=== PATIENT | male | born 1950 ===

== ENCOUNTER → 2020-09-20 | Outpatient (CLI) | payer OTHER ==
[~2020-09-20] VITALS: Ht 175.3 cm; Wt 59.0 kg
[~2020-09-20] MED LIST: ADVIL200 M1 PO; GAS RELIEF80 MG PO; PERCOCET 10-321 EAC1 PO; PERCOCET 5-3251 EACH PO; TRAZODONE HCL100 MG PO; TYLENOL EXTRA500 MG PO
--- NOTE | ~2020-09-20 | HPC ---
[facility] [place] [address] PAIN MANAGEMENT CONSULTATION Name: SAHZIA KIMBALL JR Room #: REG CARMELO Olea#: [id number] Admission: 09/20/20 Attend Phys: Adnrea Heath DO Discharge: Date of : 52 Report #: [id number] THIS REPORT FOR: cc: Johana Yusuf MD, Stephanie M. MD Johnson, James E. DO ~ DATE OF SERVICE: 09/20/2020 REFERRING PHYSICIAN: Dr. Johana Yusuf. CHIEF COMPLAINT: Chronic abdominal pain. HISTORY OF PRESENT ILLNESS: As you know, the patient is a very unfortunate 70-year-old male who reports longstanding abdominal pain. He has been diagnosed with chronic pancreatitis secondary to chronic liver disease due to polysubstance abuse and alcohol destruction. The patient reports pain intensified somewhere around in 05/2019. He has been evaluated and treated through the [facility] system in regards to his chronic symptoms. It has been determined that there are no further options for treatment through [facility] system. There are notes of noncompliance within the provided medical records. It was determined that no further treatment options were to be pursued that his symptoms had "stabilized". He was then subsequently discharged from their services. He then returned to his primary care physician who has continued the patient on Percocet 10/325, 3 times a day. Apparently, the patient is requesting increase in medication therapy and the patient was referred to our clinic for a second opinion. The patient reports today his pain is periodic. He describes the pain as throbbing, sharp and stabbing. He places current pain score at 8/10, daily average at 8/10, worst pain has been is 10/10. The patient is unable to determine what might exacerbate symptoms. He states his pain is only improved with oxycodone. He has been referred to our service to discuss his chronic abdominal pain and whether or not other options can be suggested. PAST MEDICAL HISTORY: 1. Alcoholic induced hepatitis. 2. Cirrhosis of the liver. 3. Chronic pancreatitis. 4. Gastroesophageal reflux disease. 5. Chronic obstructive pulmonary disease. 6. Chronic hepatitis C. 7. Peripheral arterial disease. 8. Herpes. PAST SURGICAL HISTORY: None. [address] [address] PAIN MANAGEMENT CONSULTATION Name: SHAZIA KIMBALL Room #: REG CARMELO Olea#: [id number] Admission: 09/20/20 Attend Phys: Andrea Heath DO Discharge: Date of : 52 Report #: [id number] SOCIAL HISTORY: The patient continues to smoke despite all recommendations to discontinue the activity as it has a direct effect on his symptoms and disease processes. He is smoking half pack currently, but has been much higher in the past. He has done this for greater than 50 years. He denies alcohol, but continues to par take in marijuana on a consistent basis. He is not working. He stopped working about 6 years ago. He is not in litigation in regards to pain. He is not receiving disability benefits. REVIEW OF SYSTEMS: Positive for decreasing weight, decrease in appetite, fatigue and weakness, wearing corrective eyewear, blurred and double vision, shortness of breath walking on flat, frequent and recurrent coughs, loss of appetite, changes in bowel movements, constipation interspersed with diarrhea, chronic abdominal pain, nocturia, sexual difficulty, heat and cold intolerance, polysubstance abuse. All other review of systems negative per 12-point review of systems other than those listed in history of present illness. Pain impact score is 32/70, moderate interference of daily activities secondary to pain. ALLERGIES: No known drug allergies. CURRENT MEDICATIONS: Percocet 10/325 one tab every 8 hours p.r.n. pain. IMAGING: No imaging available. PHYSICAL EXAMINATION: VITAL SIGNS: Blood pressure 120/64, pulse 80, respiratory rate 14 and unlabored. The patient is 98% on room air. Height 5 feet 9 inches tall, weight 130 pounds, BMI calculated 19.2. GENERAL: Well-developed, well-nourished, thin 70-year-old male. He appears his stated age. He is in no acute distress. He is placing current pain score at 8/10. HEENT: Normocephalic, atraumatic. Pupils equal, round and reactive to light. NEUROLOGIC: Speech is fluent. The patient deemed a good historian. He is wearing a mask in compliance with COVID-19 regulations. LUNGS: Appear clear. No appreciable wheezes, rhonchi or rales. CARDIOVASCULAR: Regular. No appreciable gallop, no rub. ABDOMEN: Soft, nontender. EXTREMITIES: Show no cyanosis, and no edema, appears possible mild development of upper extremity clubbing. MUSCULOSKELETAL: The patient has no palpatory tenderness over the abdomen. All quadrants appear nontender to palpation. Active bowel sounds noted. ASSESSMENT: 1. Chronic abdominal pain. 2. Chronic pancreatitis per Gastroenterology notes. 3. Cirrhosis of the liver. 4. Polysubstance abuse. [address] [address] PAIN MANAGEMENT CONSULTATION Name: SHAZIA KIMBALL JR Room #: REG CARMELO Olea#: [id number] Admission: 09/20/20 Attend Phys: Andrea Heath DO Discharge: Date of : 52 Report #: [id number] PLAN: 1. The patient has been referred to our service to discuss the appropriateness of treatment for chronic abdominal pain secondary to a diagnosis of chronic pancreatitis. I reviewed the laboratory data from the last couple of years provided to us in a written form. I was unable to find any specific elevated enzymes that would be consistent with chronic pancreatitis. The diagnosis was provided through Gastroenterology as was cirrhosis of liver secondary to excessive alcohol. It does appear that they have determined that no further treatment options are necessary. There are some indications within the chart that there was noncompliance with treatment including abstinence from alcohol which were noted positive for alcohol in September of last year. They have also requested the patient discontinue smoking as direct effect on his symptoms and he has chosen not to do so. The patient continues to par take in marijuana, which is federally illegal yet he is taking a federally controlled substances. He has been referred to our service to review his case and determine if other treatment options might be available. We discussed with the patient the following treatment options that can be provided through his primary care physician and his Gastroenterology team. 2. One could consider the use of octreotide as this medication has been shown beneficial in those individuals with chronic abdominal issues and chronic pancreatitis. I would recommend this be initiated by Gastroenterology as they can monitor the effects more closely. It has shown some excellent benefit for treatment. 3. I would recommend initiation of pancreatic enzymes if we assume he is suffering from chronic pancreatitis, pancreatic enzymes will help reduce the potential strain upon the pancreas by allowing exogenous treatment with pancreatic enzymes to improve digestive function. These could be added at any time. This might benefit the patient long-term. 4. I have shown great literature in regard to the use of antioxidants specifically antioxidant C, vitamin E, Selenium and methionine. These could be added easily without much difficulty. We would recommend initial dosing to start the lowest most effective and then escalate as necessary. 5. In regards to treatment, specifically for chronic pancreatitis, we do not recommend immediate release opioid medications. The patient is already showing tolerance to the medication and given his history of polysubstance abuse, specifically with use of heroin, immediate release opioids are a relative contraindication. The patient takes 3 tablets a day, though in his intake report states that he only has periodic pain. This would not correlate with consistent use of immediate release opioid medication. If one is considering the use of chronic opioids in the patients such as the patient, the following medications would be recommended. The 2 medications most effective for use in Gastroenterology patient is either Suboxone or methadone. Suboxone would be the medication of choice as this is the lowest Gastroenterology side effects such as constipation and slowing of the gastrointestinal tract, but also has good effect at the mu receptor providing good analgesic therapy. Suboxone has a low [facility] [address] [place] [address] PAIN MANAGEMENT CONSULTATION Name: SHAZIA KIMBALL JR Room #: REG CARMELO Olea#: [id number] Admission: 09/20/20 Attend Phys: Andrea Heath DO Discharge: Date of : 52 Report #: [id number] addiction potential, which is also a bonus in this patient's case given his previous history. Suboxone can be provided by the primary care team without the ex-modifier to the da licensure as long this is given for chronic pain. We would recommend a 2 mg/0.5 Suboxone dose that can be given either 3 times a day or a 4/1 mg dose could be given b.i.d. One could also consider the use of methadone. This can be provided either b.i.d., or once a day dose. Methadone at 5 mg will provide analgesic benefit with minimizing the GI side effects. It also has norepinephrine reuptake inhibition and NMDA receptor activity, which could provide a more consistent pain control. Methadone can be provided either through the primary care team b.i.d. dosing or can be obtained through [facility]one Clinic on a daily basis. As you are aware methadone has an extremely long half-life and can be taken once a day with good effect and minimal side effects. 6. More adjunctive treatment options would include the use of a spinal cord stimulator. There has been good evidence of a spinal cord stimulator is providing benefit for chronic abdominal symptoms from chronic pancreatitis to liver capsule expansion due to metastatic disease, a spinal cord stimulators have been shown to be quite beneficial. They also have a tendency to reduce the reliance of other medications. If the patient is considering a spinal cord stimulator trial, we can provide you for the name of the physician that provides that type of treatment for chronic pancreatitis. 7. We discussed with the patient intrathecal pump therapy. If the referring team does not feel comfortable with the use of Suboxone or methadone as indicated above, the patient could be referred to [facility] to discuss the possibility of implantation of an intrathecal pump in which they can utilize medications that cannot be given orally including bupivacaine, you could also infuse low dose clonidine and we can potentially shy away from any of the opioid medications as they are not necessary if the intrathecal pump can be utilized. If this is a consideration, we would recommend referral to [facility] pain management. 8. More aggressive treatment for end-stage disease would be a celiac plexus block with possible celiac plexus ablation with phenol or denatured alcohol. This will improve overall pain, but is typically not utilized until end of life as it can lead to complications of fecal incontinence due to its effect on the sympathetic chain though it is excellent at relieving symptoms, we do observe this typically for the last 6 months of life, though it has been used intermittently based on the literature to assist in chronic abdominal pain, unresolved by a more conservative treatments. 9. We have discussed with the patient the effects of continuing to use alcohol on his current cirrhotic liver and his ongoing chronic pancreatitis. The patient states he has been abstinent from alcohol for the past 2 years, though review of the records show that he has not actually been compliant with the abstinence. There was a noted in the medical literature provided that he had had positive alcohol testing at least in September of last year. He states he has been abstinent and that was a spurious finding, though that is concerning. [facility] [address] [place] [address] PAIN MANAGEMENT CONSULTATION Name: SHAZIA KIMBALL Room #: REG [facility].#: [id number] Admission: 09/20/20 Attend Phys: Andrea Heath DO Discharge: Date of : 52 Report #: [id number] 10. We did discuss with the patient the requirement to discontinue smoking. This was advised to him by his Gastroenterology team and is being advised by us as well, the effects of smoking directly correlate to a decrease in descending pain pathway capabilities and this is leading to lack of significant effects of the endogenous pathway for descending pain reduction. Discontinue smoking will improve his overall pain has been shown in all studies, specifically with chronic pain reduction. 11. The patient is noted to report he is continuing to smoke marijuana, though he is a [place] resident, the marijuana laws remain that it is thoroughly illegal to participate in the use of marijuana ___ and cannot be used in conjunction with opioid medication. We have advised the patient, he will have to discontinue the use of marijuana as there is no noted analgesic benefit and certainly cannot be used in tandem with opioid medications. We recommend in this patient's case if you do continue to utilize opioid medications in any form that he be tested consistently as he has shown noncompliance throughout the medical records and continues to participate in the use of marijuana. [facility] considers marijuana an illegal substance and can lead to prescribing problems for the physician that continues to provide opioid medication with known use of illegal substances. 12. We wish to thank you for the opportunity to see this patient in consultation. He has a very complicated medical history that makes it difficult to treat ongoing chronic abdominal pain, believed to be secondary to chronic pancreatitis. We wish you luck with treatment and hopeful that the opinions provided in this documentation will help direct care more effectively. Again, we wish to thank you for the opportunity to see the patient in consultation. We will be returning his care to your capable services. By: [id number] Andrea Heath DO /madelyn
[2020-09-20 09:02] VITALS: BP 120/64
--- NOTE | 2020-09-20 09:14 | NUR ---
Pain Clinic Assessment: 1. History of Osteoarthritis: Not Applicable History of Rheumatoid Arthritis: Not Applicable 2. Height: 5 ft. 9 in. 175.3 cm. Weight: 130.0 lb. oz. 58.968 kg. Patient's BMI: 19.2 3. Vital Signs: BP: 120/64 Pulse: 80 Resp: 14 Temp: 02 Sat: 98 ECG Mon: 4. Pain Intensity: 8 5. Fall Risk: Dizziness: N Needs help standing or walking: N Fallen in the last 3 months: N Fall risk comments: 6. Patient on Blood Thinner: None 7. History of Hypertension: N 8. Opioid Therapy greater than 6 weeks: Y Opiate Contract Signed: 9. Risk Assessment Tool Provided: 6 MOD 10. Functional Assessment Tool: 11. Recreational Drug Use: Current within past 3 mos Drug Type: MARIJUANA Tobacco Use: Current Every Day Smoker Tobacco Type: Cigarettes Amount or Packs/day: 1/2 PACK How Many Years: 50 Alcohol Use: Past use Frequency: Quant:
== END ==
LOC: PAIN 06:40
PROVIDERS: ATTEND Anesthesiology Pain Medicine
DX: I73.9 Peripheral vascular disease, unspecified (principal); K74.60 Unspecified cirrhosis of liver; K70.10 Alcoholic hepatitis without ascites; K86.1 Other chronic pancreatitis; K21.9 Gastro-esophageal reflux disease without esophagitis; J44.9 Chronic obstructive pulmonary disease, unspecified; F19.10 Other psychoactive substance abuse, uncomplicated; Z86.19 Personal history of other infectious and parasitic diseases; Z79.899 Other long term (current) drug therapy